=== PATIENT | male | born 1960 | race Two or more races ===

== ENCOUNTER 2022-09-05 16:25 | Inpatient (IN) | payer MEDICAID ==
[2022-09-05] VITALS (9 sets, daily range): BP systolic 0–85; BP diastolic 0–50
[~2022-09-05] VITALS: Ht 165.1 cm; Wt 54.9 kg
[~2022-09-05 16:25] MED LIST: ATROPINE SULFATE 1 MG/10 ML DISP.SYRIN IV ONE; DEXTROSE 50%-WATER 50 ML DISP.SYRIN IV ONE; EPINEPHRINE (1:10,000) SYRINGE 1 MG/10 ML DISP.SYRIN IVP ONE; SODIUM BICARBONATE SYR 50 MEQ/50 ML DISP.SYRIN IV ONE
--- NOTE | 2022-09-05 16:35 | NUR ---
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
--- NOTE | 2022-09-05 16:45 | NUR ---
established iv line 20g right ac infusing
--- NOTE | 2022-09-05 16:48 | NUR ---
CALLED FOR MIDLINE.
--- NOTE | 2022-09-05 16:49 | NUR ---
taken to ct
[2022-09-05] MEDS ORDERED: VANCOMYCIN HCL 1.25 GM in IV D5W 260 ML IV ONE (17:00)
[2022-09-05] MEDS ORDERED: VANCOMYCIN 1 GM in IV D5W 250ml IV ONE (17:00)
[2022-09-05] MEDS ORDERED: CEFEPIME 1 GM in IV D5W 50 ML IV ONE (17:00)
--- NOTE | 2022-09-05 17:10 | NUR ---
COVID TEST COLLECTED AND SENT
--- NOTE | 2022-09-05 17:16 | NUR ---
URINE COLLECTED AND SENT
[2022-09-05] MEDS ORDERED: FURO20TA4 PO (17:47)
[2022-09-05] MEDS ORDERED: MIDO5TAB4 PO (17:47)
[2022-09-05] MEDS ORDERED: GABA300C PO (17:47)
[2022-09-05] MEDS ORDERED: HYDR2TAB7 PO (17:47)
[2022-09-05] MEDS ORDERED: LACT10SO3 PO (17:47)
[2022-09-05] MEDS ORDERED: DICL100G34 TP (17:47)
[2022-09-05] MEDS ORDERED: LIDO700A30 TP (17:47)
[2022-09-05] MEDS ORDERED: SPIR50TA5 PO (17:47)
--- NOTE | 2022-09-05 17:50 | NUR ---
veterinary laboratory diagnostician at bedside
[2022-09-05] MEDS ORDERED: CIPR500T5 PO (17:57)
[2022-09-05] MEDS ORDERED: SODI1TAB66 PO (17:57)
[2022-09-05] MEDS ORDERED: NALO4SPR (17:59)
--- NOTE | 2022-09-05 18:00 | NUR ---
MIDLINE NURSE AT BEDSIDE
--- NOTE | 2022-09-05 18:15 | NUR ---
midline established at left upper arm. ok to use per midline nurse
[2022-09-05 18:16] LABS: BASOPHILS # (AUTO) 0.1 K/uL (0.0-0.2); EOSINOPHILS % (AUTO) 0.4 % (0.0-6.0)
[2022-09-05 18:20] LABS: BASOPHILS % (AUTO) 0.4 % (0.0-2.0); LYMPHOCYTES % (AUTO) 8.1 % (20.0-44.0); MEAN CORPUSCULAR HGB CONC 31 g/dl (31.0-36.0); MEAN CORPUSCULAR VOLUME 119 fL (80-96); MONOCYTES # (AUTO) 1.3 K/uL (0.1-1.30); MONOCYTES % (AUTO) 5.2 % (2.0-12.0); NEUTROPHILS # (AUTO) 20.8 K/uL (1.8-8.9); NEUTROPHILS % (AUTO) 85.9 % (43.0-81.0); PLATELET COUNT (AUTO) 98 K/uL (150-450); WHITE BLOOD COUNT (AUTO) 24.3 K/uL (4.3-11.0)
[2022-09-05 18:25] LABS: BILIRUBIN,URINE 3+ (NEGATIVE); LEUKOCYTE ESTERASE ,URINE NEGATIVE (NEGATIVE); NITRITE, URINE NEGATIVE (NEGATIVE); PH,URINE 5.5 (5.0-8.0); PROTEIN,URINE 1+ mg/dl (NEGATIVE); UGLUCOSE TRACE mg/dL (NEGATIVE); UROBILINOGEN,URINE >=8.0 EU/dL (0.2)
[2022-09-05 18:26] LABS: RED BLOOD CELL COUNT(AUTO) 1.13 MIL/uL (4.5-6.0)
[2022-09-05 18:26] LABS: COLOR,URINE DARK YELLOW (YELLOW)
[2022-09-05 18:28] LABS: HEMATOCRIT 14 % (39-51); HEMOGLOBIN 4.2 g/dL (13.5-17.5)
[2022-09-05 18:32] LABS: RBC,URINE 0-2 /HPF (0-2); WBC,URINE 0-2 /HPF (0-3)
[2022-09-05 18:33] LABS: BACTERIA,URINE RARE /HPF (None Seen); HYALINE CASTS, URINE Few /LPF (None Seen); MUCUS,URINE Few /LPF (None Seen)
[2022-09-05 18:37] LABS: SQUAMOUS EPITHELIAL CELL,UR 0-2 /HPF (None Seen)
[2022-09-05 18:47] LABS: ACETAMINOPHEN < 10 ug/ml (10-30); ALANINE AMINOTRANSFERASE 71 U/L (12-78); ALBUMIN 1.8 g/dL (3.4-5.0); ALCOHOL, BLOOD < 3 mg/dL (0-0); ALKALINE PHOSPHATASE 123 U/L (46-116); ASPARTATE AMINOTRANSFERASE 390 U/L (15-37); BILIRUBIN,DIRECT 2.7 mg/dL (0.0-0.2); CALCIUM, SERUM 8.4 mg/dL (8.5-10.1); CHLORIDE 92 mmol/L (98-107); CREATININE 1.7 mg/dL (0.6-1.3); GLUCOSE 81 mg/dL (74-106); POTASSIUM 4.7 mmol/L (3.5-5.1); SODIUM SERUM 126 mmol/L (136-145); TOTAL PROTEIN, SERUM 5.3 g/dL (6.4-8.2); UREA NITROGEN, BLOOD 26 mg/dL (7-18)
[2022-09-05 18:49] LABS: CARBON DIOXIDE 8 mmol/L (21-32)
[2022-09-05 18:51] LABS: SERUM AMMONIA 252 umol/L (11-32)
--- NOTE | 2022-09-05 18:54 | NUR ---
PT GAVE VERBAL CONSENT TO RECEIVE BLOOD TRANSFUSION, PT DAUGHTER SIGNED FOR HER FATHER. CONSENT PLACED WITHIN PT'S CHART.
[2022-09-05] MEDS ORDERED: NOREPINEPHRINE 32 MG in IV NS 0.9% 218 ML IV PRN ×2 (19:00→21:00)
[2022-09-05] MEDS ORDERED: LACTULOSE 10 G/15 ML UDC (PYXIS) PO ONE (19:00)
[2022-09-05] MEDS ORDERED: LACTULOSE 10 G/15 ML UDC (PYXIS) ONE (19:17)
[2022-09-05] MEDS ORDERED: ACETAMINOPHEN 325 MG TABLET PO PRN (19:30)
[2022-09-05] MEDS ORDERED: MIDODRINE HCL (5MG) 5 MG TABLET PO SCH (19:30)
[2022-09-05] MEDS ORDERED: PANTOPRAZOLE 40 MG VIAL IV SCH (19:30)
[2022-09-05] MEDS ORDERED: Z GUARD REMEDY 4 OZ OINT TP PRN (19:30)
[2022-09-05] MEDS ORDERED: MORPHINE SULFATE INJ 2 MG/ML DISP.SYRIN IV PRN (19:30)
[2022-09-05] MEDS ORDERED: ONDANSETRON HCL/PF 4 MG/2 ML VIAL IVP PRN (19:30)
[2022-09-05] MEDS ORDERED: RIFAXIMIN 550 MG TABLET PO SCH (19:30)
[2022-09-05] MEDS ORDERED: ENOXAPARIN SODIUM 40 MG/0.4 ML DISP.SYRIN SQ SCH (19:30)
--- NOTE | 2022-09-05 19:43 | NUR ---
PRESERVATIONIST AT PT'S BEDSIDE
--- NOTE | 2022-09-05 19:55 | NUR ---
RECEIVED PT WITH LOW BP. 64/43mmHg. LEVOPHED IV INFUSION STARTED AT 0.1mcg/kg/min.
[2022-09-05 19:56] LABS: THYROID STIMULATING HORMONE 3.092 uIU/mL (0.358-3.74)
[2022-09-05] MEDS ORDERED: ALBUMIN 25% 25 GM in PREMIX 1 EA IV SCH (20:00)
--- NOTE | 2022-09-05 20:00 | NUR ---
LEVOPHED INCREASED TO 0.2mcg/kg/min for BP 56/41mmHg
[2022-09-05 20:02] LABS: BAND % (MANUAL) 7 % (0.0-5.0); LYMPHOCYTES % (MANUAL) 10 % (16-48); MONOCYTES % (MANUAL) 4 % (0-11.0); NEUTROPHILS % (MANUAL) 77 (42-76); REACTIVE LYMPHOCYTES 2 % (0-0)
--- NOTE | 2022-09-05 20:05 | NUR ---
LEVOPHED AT 0.3mcg/kg/min for BP 59/45mmHg
--- NOTE | 2022-09-05 20:15 | NUR ---
LEVOPHED AT 0.4mcg/kg/min for BP 61/46mmHg
--- NOTE | 2022-09-05 20:20 | NUR ---
LEVOPHED AT 0.5mcg/kg/min for BP 80/58mmHg
--- NOTE | 2022-09-05 20:24 | NUR ---
LACTIC ACID 21.1
--- NOTE | 2022-09-05 20:25 | NUR ---
LEVOPHED AT 0.6mcg/kg/min for BP 79/47mmHg
--- NOTE | 2022-09-05 20:30 | NUR ---
LEVOPHED AT 0.7mcg/kg/min for BP 64/43mmHg
--- NOTE | 2022-09-05 20:35 | NUR ---
LEVOPHED AT 0.8mcg/kg/min for BP 94/76mmHg
--- NOTE | 2022-09-05 20:40 | NUR ---
LEVOPHED AT 0.9mcg/kg/min for BP 96/74mmHg
--- NOTE | 2022-09-05 20:45 | NUR ---
LEVOPHED AT 1mcg/kg/min for BP 91/69mmHg
--- NOTE | 2022-09-05 20:50 | NUR ---
Kavita thakur in ED - 09/05/22 at 2156 by BERNARDO LEVOPHED AT 01mcg/kg/min for BP 9496/69mmHg
--- NOTE | 2022-09-05 20:50 | NUR ---
LEVOPHED AT 1mcg/kg/min for BP 94/69mmHg
--- NOTE | 2022-09-05 20:54 | NUR ---
PUSHED PATIENT TO CT DEPT.
--- NOTE | 2022-09-05 20:55 | NUR ---
LEVOPHED AT 01mcg/kg/min for BP 94/61mmHg Addendum: 09/05/22 at 2230 by BERNARDO LEVOPHED AT 1mcg/kg/min for BP 94/61mmHg
[2022-09-05] MEDS ORDERED: CEFEPIME 2 GM in IV D5W 100 ML IV SCH (21:00)
--- NOTE | 2022-09-05 21:10 | NUR ---
TRANSFERRED PATIENT TO ICU
--- NOTE | 2022-09-05 21:22 | NUR ---
RN NOTES RECEIVED PATIENT UNRESPONSIVE, VERY SHALLOW BREATHING, ALMOST APNEIC, PULSELESS IMMEDIATELY DIRECTOR ERP TO MONITOR, PEA. ACTIVATED CODE BLUE. SEE ACLS CODE SHEET FOR DETAILS.
--- NOTE | 2022-09-05 21:29 | NUR ---
RN NOTES ROSC OBTAINED
--- NOTE | 2022-09-05 21:40 | NUR ---
RN NOTES PATIENT NOTED WITH BLOOD SUGAR 58 mg/dL, NOTIFIED DR. CASTORENA WITH NEW ORDER GIVE D50 NOTED AND CARRIED OUT.
[2022-09-05] MEDS ORDERED: DEXTROSE 50%-WATER 50 ML DISP.SYRIN ONE (21:41)
[2022-09-05] MEDS ORDERED: DEXTROSE 50%-WATER 50 ML DISP.SYRIN IVP STA (21:41)
--- NOTE | 2022-09-05 21:47 | NUR ---
rt responded to pt room for code blue. chest compressions in progress. rt set up ambu bag for ventilation. pt has a large amount of bloody thin secretions in mouth. rosc obtained and pt intubated with 7.5ett@24cm by er physician. positive color change, mist in the tube, bilateral chest rise, and bilateral breath sounds. pt placed on vent ac 16 450 60% +0. Addendum: 09/05/22 at 2153 by KEELEY ALEJO RT Amended: Links added.
[2022-09-05] MEDS: IV NS 0.9% 250 ML IV PRN ×2 (21:50→22:10)
[2022-09-05] MEDS ORDERED: PROPOFOL 100 ML IV PRN (22:00)
--- NOTE | 2022-09-05 22:10 | NUR ---
RN NOTES DR. DESHPANDE AT THE UNIT, NOTIFIED HIM REGARDING CT OF ABDOMEN RESULT, PER MD HE WILL LOOK AT IT.
--- NOTE | 2022-09-05 22:23 | NUR ---
RN NOTES BLOOD SUGAR RECHECKED AND OBTAINED 151mg/dL
[2022-09-05] MEDS ORDERED: BLOOD SUGAR DIAGNOSTIC 1 EACH STRIP IN PRN (22:30)
--- NOTE | 2022-09-05 22:32 | NUR ---
RN NOTES DAUGHTER OPHELIA SPOKE TO CHARGE NURSE TRES, THEY WANT TO STOP EVERYTHING, COMFORT MEASURE ONLY, AND JUST GIVE MORPHINE. NOTIFIED DR. CASTORENA WITH NEW ORDER MORPHINE 4MG IVP NOW THEM MORPHINE 2MG Q2H, COMFORT MEASURE ONLY AND TERMINAL EXTUBATION NOTED AND CARRIED OUT. FAMILY MADE AWARE AT BEDSIDE.
[2022-09-05] MEDS ORDERED: ETOMIDATE 2 MG/ML VIAL IV ONE (23:00)
[2022-09-05] MEDS ORDERED: MORPHINE SULFATE INJ 4 MG/ML DISP.SYRIN IV ONE (23:00)
--- NOTE | 2022-09-05 23:15 | NUR ---
DEWARD NOTES PATIENT IS TERMINALLY EXTUBATED Addendum: 09/06/22 at 0223 by TANIYA LEYVA RN PATIENT PUT ON NASAL CANULA
[2022-09-06] MEDS ORDERED: LACTULOSE 10 G/15 ML UDC (PYXIS) GT SCH
[2022-09-06] MEDS ORDERED: MORPHINE SULFATE INJ 2 MG/ML DISP.SYRIN IV SCH ×2
--- NOTE | 2022-09-06 | NUR ---
RN NOTES CALLED [facility] SPOKE TO BAILEE, WITH CASE NO.-[id number]
--- NOTE | 2022-09-06 00:11 | NUR ---
RN/ICU-PRONOUNCEMENT OF : CODE STATUS"COMFORT MEASURES ONLY". ON ASSESSMENT PT. UNRESPONSIVE TO ANY FORM OF STIMULI. PUPILS ARE FIXED AND DILATED. APNEIC. HEART TONES ARE ABSENT. PERIPHERAL PULSES ARE ABSENT. NO SIGNS OF LIFE. PRONOUNCED AT 2347 (09/05/2022). BY:TRES GATES RN/BSN
--- NOTE | 2022-09-06 01:10 | NUR ---
RN NOTES CALLED [employer] SUPERVISOR'S OFFICE SPOKE TO NAILA, PATIENT IS SOFT SUGAR SUPERVISOR'S CASE, , DAUGHTER OPHELIA AT BEDSIDE MADE AWARE.
--- NOTE | 2022-09-06 01:45 | NUR ---
RN NOTES BAILEE FROM [facility] CALLED AGAIN, PER BAILEE UPON FURTHER REVIEW OF PATIENT CASE, PATIENT IS INELIGIBLE TO BE A DONOR, AND CAN DISCHARGE APPROPRIATELY.
[2022-09-06] MEDS ORDERED: GABAPENTIN 300 MG CAPSULE PO SCH (09:00)
[2022-09-06] MEDS ORDERED: SODIUM CHLORIDE 1000 MG TABLET PO SCH (09:00)
[2022-09-06] MEDS ORDERED: VANCOMYCIN 1 GM in IV D5W 250 ML IV SCH (17:00)
== END 2022-09-06 04:35 | DRG 720 ==
LOC: ER 16:28 → TRANSITION 19:26 → ICU 19:34
PROVIDERS: ADMIT Internal Medicine; ATTEND Internal Medicine
PROC: 0BH17EZ Insertion of Endotracheal Airway into Trachea, Via Natural or Artificial Opening (ICD-10-PCS; principal; 2022-09-05)
PROC: 5A2204Z Restoration of Cardiac Rhythm, Single (ICD-10-PCS; 2022-09-05)
DX: A41.9 Sepsis, unspecified organism (principal); J96.01 Acute respiratory failure with hypoxia; G93.41 Metabolic encephalopathy; K66.1 Hemoperitoneum; E43 Unspecified severe protein-calorie malnutrition; R65.21 Severe sepsis with septic shock; R57.1 Hypovolemic shock; E72.20 Disorder of urea cycle metabolism, unspecified; D68.59 Other primary thrombophilia; J18.9 Pneumonia, unspecified organism; K76.82 Hepatic encephalopathy; E87.20 Acidosis, unspecified; K70.31 Alcoholic cirrhosis of liver with ascites; E87.1 Hypo-osmolality and hyponatremia; G89.29 Other chronic pain; Z85.05 Personal history of malignant neoplasm of liver; Z51.5 Encounter for palliative care; Z85.830 Personal history of malignant neoplasm of bone; Z79.899 Other long term (current) drug therapy; E16.2 Hypoglycemia, unspecified; E88.09 Other disorders of plasma-protein metabolism, not elsewhere classified; N18.9 Chronic kidney disease, unspecified; N17.9 Acute kidney failure, unspecified; D69.6 Thrombocytopenia, unspecified; F19.10 Other psychoactive substance abuse, uncomplicated; Z87.19 Personal history of other diseases of the digestive system
CPT/HCPCS: 36415; 70450-TC; 71045-TC; 71250-TC; 80048-TC; 80076-TC; 81001; 82140-TC; 82962-TC; 83605-TC; 84443-TC; 84484-TC; 85025-TC; 85730-TC; 86850-TC; 87040-TC; 87081-TC; 92950-TC; 94002-TC; 94799-TC; A4216; C9803; G0378; G0480; J0171; J0461; J0692; J2270; J3370; J3490; J7030; J7050; J7060; P9016; P9047